=== PATIENT | male | born 1995 | race American Indian/Alaskan Native ===

== ENCOUNTER 2023-03-03 17:03 | Emergency (ER) | payer SELFPAY ==
[2023-03-03] MEDS: Morphine 4 MG/ML Syringe IVPUSH ONE (17:24)
[2023-03-03] MEDS: Ondansetron 4 MG/2 ML SDV IVPUSH ONE (17:24)
[2023-03-03 17:29] LABS: BASOPHILS ABSOLUTE AUTO 0.02 K/uL (0.00-0.20); BASOPHILS PERCENT AUTO 0.2 % (0.0-2.0); EOSINOPHILS ABSOLUTE AUTO 0.14 K/uL (0.00-0.50); EOSINOPHILS PERCENT AUTO 1.2 % (0.0-5.0); HEMOGLOBIN 15.6 g/dL (13.1-16.8); LYMPHOCYTES PERCENT AUTO 19.2 % (10.0-50.0); MEAN CORPUSCULAR HEMOGLOBIN 28.7 pg (28.2-33.3); MEAN CORPUSCULAR HGB CONC 33.9 g/dL (31.7-36.0); MEAN CORPUSCULAR VOLUME 84.6 fL (84.0-98.0); MONOCYTES ABSOLUTE AUTO 1.05 K/uL (0.00-1.00); MONOCYTES PERCENT AUTO 9.2 % (2.0-14.0); NEUTROPHILS ABSOLUTE AUTO 8.03 K/uL (1.40-7.00); NEUTROPHILS PERCENT AUTO 70.2 % (45.0-80.0); PLATELET COUNT,PLT 295 K/uL (150-350); RED BLOOD CELL COUNT 5.44 M/uL (4.33-5.41); RED CELL DISTRIBUTION WIDTH 13.7 % (11.2-14.1); WHITE BLOOD CELL COUNT,WBC 11.4 K/uL (4.0-10.2)
[2023-03-03] MEDS: Iopamidol 612 MG/ML 100 ML Bottle IVPUSH STA (17:45)
[2023-03-03] MEDS: Sodium Chloride 0.9% 1,000 ML IV ONE (17:51)
[2023-03-03 17:55] LABS: ALBUMIN 4.8 g/dL (3.4-5.0); BILIRUBIN TOTAL 1.6 mg/dL (0.2-1.0); CREATININE 0.92 mg/dL (0.51-1.17); EST CRCL DRUG DOSING (CG) 133.89 mL/min; POTASSIUM,K 3.2 mmol/L (3.5-5.1)
[2023-03-03 17:57] LABS: ANION GAP 17.2 meq/L (7-15)
[2023-03-03] MEDS: Sodium Chloride 0.9% 10 ML Syringe FLUSH PRN (18:07)
[2023-03-03] MEDS: Ketorolac 15 MG/ML SDV IVPUSH ONE (19:19)
[2023-03-03] MEDS: Morphine 2 MG/ML SYRINGE IVPUSH ONE (19:20)
[2023-03-03] MEDS: Acetaminophen 500 MG Tab PO ONE (19:21)
[2023-03-03] MEDS: Potassium Bicarbonate/Cit Ac 20 MEQ Effervescent Tab PO ONE (19:21)
[2023-03-03 19:46] VITALS: BP 161/87; PULSE 87
== END 2023-03-03 19:45 | disposition home or self-care (01) ==
LOC: LL.ED 17:03
DX: S22.42XA Multiple fractures of ribs, left side, initial encounter for closed fracture (principal); K21.9 Gastro-esophageal reflux disease without esophagitis; F17.210 Nicotine dependence, cigarettes, uncomplicated; Z79.899 Other long term (current) drug therapy; W50.0XXA Accidental hit or strike by another person, initial encounter
CPT/HCPCS: 36415; 71260; 80053; 83690; 85025; 96361; 96374; 96375; 96376; 99283; 99285-25; A9270-GY; J1885; J2270; J2405; J3490; J7030; Q9967